=== PATIENT | female | born 1960 | race Caucasian/White ===

== ENCOUNTER → 2019-01-24 | Outpatient (CLI) | payer OTHER ==
[~2019-01-24] MED LIST: Daily Multiple1 EACH; Estrace Vagin42.5 GM; Estradiol0.5 MG PO; Fish Oil 10001000 MG; LEVSOD100 PO
== END | disposition home or self-care (01) ==
LOC: LAB SHORT 17:34 → LAB 17:34
DX: N39.0 Urinary tract infection, site not specified (principal)
CPT/HCPCS: 87077; 87086; 87186